=== PATIENT | female | born 1965 | race Caucasian/White ===

== ENCOUNTER 2021-10-07 11:40 | Emergency (ER) | payer OTHER ==
[2021-10-07] MEDS ORDERED: Proparacaine 0.5% Ophth Soln 15 ML Bottle EYELF PRN (12:04)
[2021-10-07] MEDS ORDERED: Fluorescein 1 MG Ophth Strip EYELF ONE (12:05)
[2021-10-07] MEDS ORDERED: Take Home: Gentamicin 0.3% Ophth Soln 5 ML, 1 Bottle Pack EYEBOTH ONE (12:18)
== END 2021-10-07 12:40 | disposition home or self-care (01) ==
LOC: VM.ED 11:40
DX: S05.01XA Injury of conjunctiva and corneal abrasion without foreign body, right eye, initial encounter (principal); Z88.0 Allergy status to penicillin; W22.09XA Striking against other stationary object, initial encounter
CPT/HCPCS: 99283